=== PATIENT | male | born 1950 | race Caucasian/White ===

== ENCOUNTER 2021-02-01 11:51 | Day surgery (SDC) | payer BC, MEDICAID ==
[2021-01-27 12:43] LABS: BASOPHILS % (AUTO) 0.7 % (0-1); EOSINOPHILS # (AUTO) 0.1 X10'3 (0-0.9); EOSINOPHILS % (AUTO) 1.6 % (0-6); HEMATOCRIT 39.1 % (42.0-52.0); HEMOGLOBIN 13.4 g/dl (14.0-17.9); LYMPHOCYTES # (AUTO) 2.7 X10'3 (1.1-4.8); LYMPHOCYTES % (AUTO) 41.1 % (21-51); MEAN CORPUSCULAR HEMOGLOBIN 31.4 PG (27.0-31.0); MEAN CORPUSCULAR HGB CONC 34.3 g/dL (33.0-36.5); MEAN CORPUSCULAR VOLUME 91.7 FL (78-98); MEAN PLATELET VOLUME 8.7 FL (7.4-10.4); MONOCYTES # (AUTO) 0.5 X10'3 (0-0.9); MONOCYTES % (AUTO) 7.1 % (2-12); NEUTROPHILS # (AUTO) 3.2 X10'3 (1.8-7.7); NEUTROPHILS % (AUTO) 49.5 % (42-75); PLATELET COUNT 206 X10'3 (140-440); RED BLOOD COUNT 4.26 X10'6 (4.70-6.10); RED CELL DISTRIBUTION WIDTH 12.5 % (11.5-14.5); WHITE BLOOD COUNT 6.5 X10'3 (4.5-11.0)
[2021-01-27 12:50] LABS: ALBUMIN 3.6 G/DL (3.4-5.0); ANION GAP 4 (8-16); BLOOD UREA NITROGEN 20 MG/DL (7-18); BUN/CREATININE RATIO 16.1 (5.4-32.0); CHLORIDE 101 MMOL/L (99-107); CREATININE 1.24 MG/DL (0.60-1.10); GLUCOSE 305 MG/DL (70-104); POTASSIUM 4.7 MMOL/L (3.5-5.1); SODIUM 138 MMOL/L (135-145); TOTAL CARBON DIOXIDE 33.3 MMOL/L (24-32); eGFR 58 ML/MIN
[2021-01-27 12:51] LABS: PARTIAL THROMBOPLASTIN TIME 26 SECONDS (22-32)
[~2021-02-01] VITALS: Ht 172.7 cm; Wt 88.1 kg
[2021-02-01] VITALS (11 sets, daily range): BP systolic 110–135; BP diastolic 69–84
[2021-02-01] MEDS ORDERED: LORazepam 0.5 MG tablet PO PRN (12:20)
[2021-02-01] MEDS ORDERED: diphenhydrAMINE 25mg capsule PO PRN (12:20)
[2021-02-01] MEDS ORDERED: normal saline 1,000 ML IV SCH (12:20)
[2021-02-01] MEDS ORDERED: METF-950 PO (12:26)
[2021-02-01] MEDS ORDERED: FERR-106 PO (12:26)
[2021-02-01] MEDS ORDERED: HYDR-3972 PO (12:26)
[2021-02-01] MEDS ORDERED: ROSU20TA31 PO (12:26)
[2021-02-01] MEDS ORDERED: ASPI-10 PO (12:32)
[2021-02-01] MEDS ORDERED: MAG (12:32)
[2021-02-01] MEDS ORDERED: ZINC PO (12:32)
[2021-02-01] MEDS ORDERED: CHOL20002 PO (12:32)
[2021-02-01] MEDS ORDERED: CALCIUM (12:32)
[2021-02-01] MEDS ORDERED: TURMERIC (12:32)
[2021-02-01] MEDS ORDERED: VITAMIN C (12:32)
[2021-02-01] MEDS ORDERED: GINSENG (12:32)
[2021-02-01] MEDS ORDERED: midazolam 1 mg/ML 2ml injection ONE ×2 (13:05→13:32)
[2021-02-01] MEDS ORDERED: LIDOcaine 1% (10mg/ml)w/preservative injection 20ml MDV ONE (13:05)
[2021-02-01] MEDS ORDERED: fentaNYL/PF 50MCG/1 ML 2ML syringe ONE (13:05)
[2021-02-01] MEDS ORDERED: iohexol 350 MG/1 ML 200ml bottle ONE (13:05)
[2021-02-01] MEDS ORDERED: proCHLORperazine 10 MG/2 ml inj IV PRN (14:35)
[2021-02-01] MEDS ORDERED: ondansetron/PF 4mg/2ml inj IV PRN (14:35)
[2021-02-01] MEDS ORDERED: normal saline 1000ml 1,000 ML IV SCH (14:35)
[2021-02-01] MEDS ORDERED: OXAZEpam 15mg capsule PO PRN (14:35)
[2021-02-01] MEDS ORDERED: HYDROcodone/acetaminophen 10/325mg tab PO PRN (14:35)
[2021-02-01] MEDS ORDERED: HYDROcodone/acetaminophen 5mg/325mg tablet PO PRN (14:35)
[2021-02-01] MEDS ORDERED: nitroGLYCERIN 0.4mg SUBLingual tab SL PRN (14:35)
== END 2021-02-01 17:15 | disposition home or self-care (01) ==
LOC: SSTAY O 11:51
PROVIDERS: ATTEND Internal Medicine Interventional Cardiology
DX: R94.39 Abnormal result of other cardiovascular function study (principal); R07.89 Other chest pain; I25.810 Atherosclerosis of coronary artery bypass graft(s) without angina pectoris; E78.00 Pure hypercholesterolemia, unspecified; F41.9 Anxiety disorder, unspecified; E11.40 Type 2 diabetes mellitus with diabetic neuropathy, unspecified; G89.29 Other chronic pain; M13.0 Polyarthritis, unspecified; Z79.84 Long term (current) use of oral hypoglycemic drugs; Z79.82 Long term (current) use of aspirin; Z79.899 Other long term (current) drug therapy; Z79.01 Long term (current) use of anticoagulants
CPT/HCPCS: 36415; 80048; 82948; 85025; 85610; 85730; 93005; 93459; 99152; 99153; C1760; C1769; J1644; J2001; J2250; J3010; J7030; Q0163; Q9967; A4620; A6258

== ENCOUNTER 2024-12-06 19:44 | Emergency (ER) | payer BC, MEDICAID ==
[~2024-12-06] VITALS: Ht 172.7 cm; Wt 94.0 kg
[~2024-12-06 19:44] MED LIST: ASPI-10 PO; CALCIUM; CHOL20002 PO; FERR-106 PO; GINSENG; HYDR-3972 PO; MAG; METF-1203 PO; ROSU20TA98 PO; TURMERIC; VITAMIN C; ZINC PO
--- NOTE | 2024-12-06 20:03 | ELECTROCARDIOGRAPH REPORT ---
[facility] Test Date: 2024-12-06 Test Time: 20:00:33 Pat Name: OSCAR MORENO Department: EMERGENCY ROOM Room: Gender: M Alpine Guide: : 1950 Requested By: BAHMAN COLORADO Order Number: [id number] Reading MD: Measurements Intervals Loop Rate: 101 P: 40 CO: 175 QRS: 35 QRSD: 101 T: -6 QT: 359 QTc: 466 Interpretive Statements Sinus tachycardia Probable left atrial enlargement Nonspecific T abnormalities, anterior leads Please click the below link to view image of tracing.
[2024-12-06 20:19] LABS: BASOPHILS % (AUTO) 0.6 % (0-1); EOSINOPHILS # (AUTO) 0.1 X10'3 (0-0.9); EOSINOPHILS % (AUTO) 1.2 % (0-6); HEMATOCRIT 39.8 % (42.0-52.0); HEMOGLOBIN 13.6 g/dl (14.0-17.9); LYMPHOCYTES # (AUTO) 2.3 X10'3 (1.1-4.8); LYMPHOCYTES % (AUTO) 29.6 % (21-51); MEAN CORPUSCULAR HEMOGLOBIN 30.9 PG (27.0-31.0); MEAN CORPUSCULAR HGB CONC 34.1 g/dL (33.0-36.5); MEAN CORPUSCULAR VOLUME 90.7 FL (78-98); MEAN PLATELET VOLUME 8.8 FL (7.4-10.4); MONOCYTES # (AUTO) 0.5 X10'3 (0-0.9); MONOCYTES % (AUTO) 6.1 % (2-12); NEUTROPHILS # (AUTO) 4.8 X10'3 (1.8-7.7); NEUTROPHILS % (AUTO) 62.5 % (42-75); PLATELET COUNT 195 X10'3 (140-440); RED BLOOD COUNT 4.39 X10'6 (4.70-6.10); RED CELL DISTRIBUTION WIDTH 13.2 % (11.5-14.5); WHITE BLOOD COUNT 7.7 X10'3 (4.5-11.0)
--- NOTE | 2024-12-06 20:26 | RADIOLOGY REPORT ---
CHEST RADIOGRAPH Indication: CP Technique: Single frontal view of the chest was obtained COMPARISON: None FINDINGS: Lines and Tubes: None. Sternotomy and CABG. Lungs: Clear Pleura: No effusion. No pneumothorax. Cardiomediastinal contours: Unremarkable IMPRESSION: No acute disease.
[2024-12-06 20:30] LABS: ALANINE AMINOTRANSFERASE 38 U/L (12-78); ALKALINE PHOSPHATASE 83 IU/L (46-116); ANION GAP 7 (8-16); ASPARTATE AMINO TRANSFERASE 22 U/L (10-37); BILIRUBIN,TOTAL 0.8 MG/DL (0.1-1.0); BLOOD UREA NITROGEN 26 MG/DL (7-18); BUN/CREATININE RATIO 21.5 (10.0-20.0); CALCIUM 8.8 MG/DL (8.5-10.1); CHLORIDE 98 MMOL/L (99-107); CREATININE 1.21 MG/DL (0.60-1.10); GLUCOSE 218 MG/DL (70-104); POTASSIUM 4.3 MMOL/L (3.5-5.1); SODIUM 134 MMOL/L (135-145); TOTAL CARBON DIOXIDE 29.2 MMOL/L (24-32); TOTAL PROTEIN 7.9 G/DL (6.4-8.2); eCRCL 52 ML/MIN; eGFR 59 ML/MIN
[2024-12-06 20:37] LABS: PRO BRAIN NATRIURETIC PEPTIDE 426 PG/ML (0-125)
[2024-12-06 20:38] LABS: BILIRUBIN,URINE NEGATIVE (Neg); CLARITY,URINE CLEAR (Clear); COLOR,URINE YELLOW (Yellow); GLUCOSE, URINE >=1000 mg/dl (Neg); KETONES,URINE TRACE mg/dl (Neg); LEUKOCYTE ESTERASE ,URINE NEGATIVE (Neg); NITRITES, URINE NEGATIVE (Neg); OCCULT BLOOD,URINE NEGATIVE (Neg); PH,URINE 6.5 (4.8-8.0); PROTEIN,URINE NEGATIVE (Neg); UROBILINOGEN,URINE 0.2 E.U/dL (0.2-1.0)
[2024-12-06 20:41] LABS: UA COLLECTION TYPE CLN CATCH MIDSTREAM
[2024-12-06 20:50] LABS: BACTERIA,URINE NONE SEEN /HPF (Neg); RBC,URINE 0-2 /HPF (0-2); SQUAMOUS EPITHELIAL CELL,UR NONE SEEN /LPF (FEW); WBC,URINE NONE SEEN /HPF (0-4)
[2024-12-06] MEDS ORDERED: iohexol 300mg/ml 100ml inj. ONE (22:02)
[2024-12-06] MEDS: ondansetron 4mg rapidly disintigrating tab PO ONE (22:04)
--- NOTE | 2024-12-06 23:20 | RADIOLOGY REPORT ---
Clinical History vomiting, distension, flank pain Comparison None Technique: All CT scans at this medical facility are performed using dose modulation techniques as appropriate t o a performed exam including the following: Automated exposure control was utilized; adjustment of th e mA and/or kV according to patient size; and use of iterative reconstruction technique. All CT studies are reported to the Dose Index Registry of the [employer]. Contrast: OMNIPAQUE 300, 100ML Radiation Dose: CTDI (mGy): 30.51; DLP (mGy-cm): 1783.28 OSCAR MORENO, [id number] CT abdomen and pelvis Clinical history: 74-year-old Vomiting, flank pain Findings: Contrast: OMNIPAQUE 300, 100ML Lower lung parikh:clear Liver:normal Gallbladder:Cholecystectomy Pancreas:normal Spleen:normal Adrenals:normal Kidneys:normal GI tract:Constipation Musculoskeletal:Left hip prosthesis Urinary bladder: Distended Pelvis:normal Appendix:not visualized. Impression: Constipation. This report was electronically signed by Ran Porter MD on 12/06/2024 11:17:33 PM.
--- NOTE | 2024-12-07 00:42 | Physician Documentation ---
History of Present Illness Chief Complaint: Flank Pain Stated Complaint: MULTIPLE MED COMPLAINTS Time Seen by MD: 20:52 Primary Medical Doctor: DR. LAWS Mode of Arrival: POV, Ambulatory HPI 74 year old male with bilateral flank pain for several days. Denies N/V/D. Thinks he may have a urinary tract infection. Denies fevers. Has been a bit nauseated. Medication Reconciliation Allergies: Coded Allergies: No Known Allergies (Unverified , 02/01/21) Scheduled Aspirin (Aspirin), 1 TAB PO DAILY, (Reported) Cholecalciferol (Vitamin D3) (Vitamin D3), 1 CAP PO DAILY, (Reported) Ferrous Sulfate (Ferrous Sulfate), 1 TAB PO DAILY, (Reported) Rosuvastatin Calcium (Rosuvastatin Calcium), 1 TAB PO DAILY, (Reported) [Zinc], 25 MG PO DAILY, (Reported) Scheduled PRN Hydrocodone Bit/Acetaminophen (Hydrocodon-Acetaminophn 10-325 tablet), 1 TAB PO QID PRN for pain, (Reported) Miscellaneous Medications Metformin HCl (Metformin HCl), 2 TAB PO, (Reported) [Calcium & Mag], (Reported) [Ginseng], (Reported) [Turmeric], (Reported) [Vitamin C ], (Reported) Past Medical History Past Medical History: Hypertension, Diabetes Smoking Status: Never smoker Alcohol Use: None Drug Use: none Review of Systems All Other Systems at this time: Reviewed and Negative Physical Exam Vital Signs: RN Vital Signs have been reviewed: Yes, Temperature: 97.9, Heart Rate: 89, Respiratory Rate: 18, BP: 154/80, Pulse Oximetry: 99, Weight: 94.050 Oxygen Flow Rate: 0 Physical Exam HEENT: PERRL, moist oral mucosa, EOMI Pulmonary: No respiratory distress Cardiac: RRR, no murmur, rub or gallop GI: somewhat distended, but nontender MSK: no deformity Skin: w/d/i, no rash Neuro: alert, nonfocal Psych: normal affect Progress Results/Orders Results/Orders Orders - BAHMAN COLORADO MD Chest,Single View (12/06/24 19:53) Monitor (12/06/24 19:53) Saline Lock (12/06/24 19:53) Oxygen (12/06/24 19:53) Hs Troponin I W Calculations (12/06/24 22:53) Ct Abdomen Pelvis (12/06/24 21:47) * Bladder Scan / Post Residual (12/06/24 22:56) Completed Orders - BAHMAN COLORADO MD Cbc/Diff (12/06/24 19:53) CMP (12/06/24 19:53) Chest,Single View (12/06/24 19:53) PBNP (12/06/24 19:53) Electrocardiogram (12/06/24 19:53) Hs Troponin I W Calculations (12/06/24 19:53) Hs Troponin I W Calculations (12/06/24 21:53) Ua W/Microscopic, Cult If Ind (12/06/24 19:55) Ct Abdomen Pelvis (12/06/24 21:47) Ondansetron Disint. Tablet (Zofran Odt T (12/06/24 22:00) Iohexol 300mg/Ml 100ml Inj. (Omnipaque-3 (12/06/24 22:02) Medications Received in ER Medications (Trade) Dose Ordered Sig/Juan Route PRN Reason Start Time Stop Time Status Last Admin Dose Admin (Zofran ODT tablet) 4 mg ONCE ONCE PO 12/06/24 22:00 12/06/24 22:01 DC 12/06/24 22:04 4 MG Vital Signs 12/06/24 12/06/24 12/06/24 19:48 21:18 22:13 Temp 97.9 Pulse 104 89 Resp 16 16 18 B/P (MAP) 126/79 154/80 (104) Pulse Ox 97 99 O2 Flow Rate 0 0 Laboratory Tests Test 12/06/24 19:55 12/06/24 20:06 12/06/24 21:44 Urine Specimen Description Cln catch midstream Urine Color Yellow Urine Clarity Clear Urine pH 6.5 Urine Specific [place] 1.010 Urine Protein Negative Urine Glucose (UA) >=1000 H Urine Ketones Trace H Urine Occult Blood Negative Urine Nitrite Negative Urine Bilirubin Negative Urine Urobilinogen 0.2 Urine Leukocyte Esterase Negative Urine RBC 0-2 Urine WBC None seen Urine Squamous Epithelial Cells None seen Urine Bacteria None seen Urine Culture Indicated Not ind Volume Urine Centrifuged 10 ml Urine Comment White Blood Count 7.7 Red Blood Count 4.39 L Hemoglobin 13.6 L Hematocrit 39.8 L Mean Corpuscular Volume 90.7 Mean Corpuscular Hemoglobin 30.9 Mean Corpuscular Hemoglobin Concent 34.1 Red Cell Distribution Width 13.2 Platelet Count 195 Mean Platelet Volume 8.8 Neutrophils (%) (Auto) 62.5 Lymphocytes (%) (Auto) 29.6 Monocytes (%) (Auto) 6.1 Eosinophils (%) (Auto) 1.2 Basophils (%) (Auto) 0.6 Neutrophils # (Auto) 4.8 Lymphocytes # (Auto) 2.3 Monocytes # (Auto) 0.5 Eosinophils # (Auto) 0.1 Basophils # (Auto) 0.0 CBC Comment Sodium Level 134 L Potassium Level 4.3 Chloride Level 98 L Carbon Dioxide Level 29.2 Anion Gap 7 L Blood Urea Nitrogen 26 H Creatinine 1.21 H Estimated GFR/1.73 m2 59 BUN/Creatinine Ratio 21.5 H Glucose Level 218 H Calcium Level 8.8 Total Bilirubin 0.8 Aspartate Amino Transf (AST/SGOT) 22 Alanine Aminotransferase (ALT/SGPT) 38 Alkaline Phosphatase 83 Troponin I High Sensitivity 14 11 Pro-B-Type Natriuretic Peptide 426 H Total Protein 7.9 Albumin 4.0 Globulin 3.9 Albumin/Globulin Ratio 1.0 L Chemistry Comments Troponin I High Sens Percent Delta 21 Troponin I Hi Sens Absolute Change -3 Medical Decision Making Findings 74 year old male with nonspecific flank pain and nausea. Workup only demonstrated a distended bladder and we did a post-void residual demonstrating a 500cc residual. Discussed this with the patient and I believe his kidney pain is related to BPH and incomplete emptying of his bladder. Will prescribe flomax and follow up with a urologist and PCP. Return precautions. Differential Dx:Considerations: Include: Appendicitis, Bowel obstruction, Constipation, Diverticular disease, Hepatitis, Inflammatory BD, Pancreatitis, Urinary obstruction, Urinary tract infection Departure Disposition: HOME / SELF CARE / HOMELESS Impression: Primary Impression: Urinary tract obstruction Condition: Stable Discharge Instructions: Benign Prostatic Hyperplasia Referrals: NO PRIMARY CARE PROVIDER (PCP) Prescriptions Tamsulosin Hcl* (Flomax*) 0.4 Mg Cap.sr.24h 0.4 MG PO DAILY, #30 CAP Prov: BAHMAN COLORADO MD 12/07/24 Education Educated: Patient Educated regarding: diagnosis, treatment, prognosis, need for follow up Signature Scribe Signature: . Attestation: . BAHMAN COLORADO MD December 07, 2024 00:42
[2024-12-07] MEDS ORDERED: TAMS-55 PO (00:52)
[2024-12-07] MEDS: tamsulosin 0.4mg capsule PO SCH (00:52)
[2024-12-07 00:59] VITALS: BP 135/83; PULSE 92; RESP 16; TEMP 97.7; O2SAT 97
[2024-12-07] MEDS ORDERED: tamsulosin 0.4mg capsule PO SCH (21:00)
== END 2024-12-07 01:01 | disposition home or self-care (01) ==
LOC: ER 19:44
DX: N13.9 Obstructive and reflux uropathy, unspecified (principal); E11.9 Type 2 diabetes mellitus without complications; I10 Essential (primary) hypertension; Z79.82 Long term (current) use of aspirin
CPT/HCPCS: 36415; 71045; 74177; 80053; 81001; 83880; 84484; 85025; 93005; 99285; Q9967

== ENCOUNTER 2025-06-04 10:06 | Outpatient (CLI) | payer BC, MEDICAID ==
[2025-06-04 11:21] VITALS: PULSE 92; RESP 14; O2SAT 98
--- NOTE | 2025-06-05 15:04 | PROCEDURE NOTE - Respiratory ---
Procedure Note-Respiratory Providers to CC Copies To 1: DENY NAVA Procedure Name: This is a spirometry study dated June 04, 2025. Spirometry measurements: Both the forced vital capacity and the FEV1 are in the lower range of normal. The FEV1 ratio is slightly elevated. The flow rate measurements are all excellent. Bronchodilator was not administered as part of the study. Overall conclusion: Normal spirometry study. We have no previous studies for comparison. NATE PERERA MD Jun 05, 2025 15:04
== END 2025-06-04 23:59 | disposition home or self-care (01) ==
LOC: RT 10:06
PROVIDERS: ATTEND Student in an Organized Health Care Education/Training Program
DX: R05.3 Chronic cough (principal)
CPT/HCPCS: 94010; 94760